=== PATIENT | female | born 1980 | race Caucasian/White ===

== ENCOUNTER 2023-01-05 08:46 | Day surgery (SDC) | payer BC ==
[~2023-01-05] VITALS: Ht 160 cm; Wt 79.9 kg
[2023-01-05] VITALS (11 sets, daily range): BP systolic 115–139; BP diastolic 68–94
[2023-01-05] MEDS ORDERED: TAMO20TA4 PO (09:07)
[2023-01-05] MEDS ORDERED: LEVO50TA PO (09:07)
[2023-01-05] MEDS ORDERED: OLME20TA23 PO (09:07)
[2023-01-05] MEDS ORDERED: VENL75CA61 PO (09:07)
[2023-01-05] MEDS ORDERED: normal saline 1000ml 1,000 ML IV PRN (09:15)
[2023-01-05] MEDS ORDERED: midazolam 1 mg/ML 2ml injection ONE (09:49)
[2023-01-05] MEDS ORDERED: LIDOcaine 1% (10mg/ml) 2ml vial ONE (09:49)
[2023-01-05] MEDS ORDERED: fentaNYL/PF 50MCG/1 ML 2ML syringe ONE ×2 (09:49→10:25)
[2023-01-05 09:54] LABS: BASOPHILS % (AUTO) 0.6 % (0-1); EOSINOPHILS # (AUTO) 0.1 X10'3 (0-0.9); EOSINOPHILS % (AUTO) 2.2 % (0-6); HEMOGLOBIN 11.8 g/dl (12.0-16.0); LYMPHOCYTES # (AUTO) 1.2 X10'3 (1.1-4.8); LYMPHOCYTES % (AUTO) 24.7 % (21-51); MEAN CORPUSCULAR HEMOGLOBIN 29.6 PG (27.0-31.0); MEAN CORPUSCULAR HGB CONC 33.7 g/dL (33.0-36.5); MEAN CORPUSCULAR VOLUME 87.8 FL (78-98); MEAN PLATELET VOLUME 10.7 FL (7.4-10.4); MONOCYTES # (AUTO) 0.3 X10'3 (0-0.9); NEUTROPHILS # (AUTO) 3.2 X10'3 (1.8-7.7); NEUTROPHILS % (AUTO) 65.5 % (42-75); PLATELET COUNT 194 X10'3 (140-440); RED BLOOD COUNT 3.98 X10'6 (4.20-5.60); RED CELL DISTRIBUTION WIDTH 13.2 % (11.5-14.5); WHITE BLOOD COUNT 4.8 X10'3 (4.5-11.0)
--- NOTE | 2023-01-05 13:23 | NUR ---
Biopsy site stable, no s/s bleeding. Pt and both verbalized understanding of DC instructions. Pt dc'd to home via wc with all belongings.
== END 2023-01-05 12:00 | disposition home or self-care (01) ==
LOC: SSTAY O 08:46
PROVIDERS: ATTEND Radiology Vascular & Interventional Radiology
DX: C79.51 Secondary malignant neoplasm of bone (principal); Z88.0 Allergy status to penicillin; Z91.041 Radiographic dye allergy status; Z79.899 Other long term (current) drug therapy; Z90.49 Acquired absence of other specified parts of digestive tract; Z90.710 Acquired absence of both cervix and uterus; Z90.13 Acquired absence of bilateral breasts and nipples; Z85.3 Personal history of malignant neoplasm of breast
CPT/HCPCS: 20220; 36415; 77012; 85025; 99152; 99153; J2250; J3010; J3490; J7030; 20225; A4615